=== PATIENT | female | born 1980 | race Caucasian/White ===

== ENCOUNTER → 2018-07-09 | Outpatient (CLI) | payer BC ==
[~2018-07-09] MED LIST: PRENATAL VITAMI1 TA5 PO
== END ==
LOC: COL.RAD 10:17
DX: M25.561 Pain in right knee (principal)

== ENCOUNTER → 2020-01-17 | Outpatient (CLI) | payer BC | LOC: MC.RAD 13:30 | DX: Z12.31 Encounter for screening mammogram for malignant neoplasm of breast (principal); N63.10 Unspecified lump in the right breast, unspecified quadrant ==

== ENCOUNTER → 2020-01-28 | Outpatient (CLI) | payer BC | LOC: MC.RAD 08:14 | DX: N63.12 Unspecified lump in the right breast, upper inner quadrant (principal) ==

== ENCOUNTER → 2020-08-13 | Outpatient (CLI) | payer BC | LOC: MC.RAD 09:15 | DX: N63.10 Unspecified lump in the right breast, unspecified quadrant (principal) ==

== ENCOUNTER → 2021-10-28 | Outpatient (CLI) | payer BC | LOC: MC.RAD 09:30 | DX: Z12.31 Encounter for screening mammogram for malignant neoplasm of breast (principal) ==

== ENCOUNTER 2021-12-12 10:01 | Emergency (ER) | payer BC ==
[~2021-12-12] VITALS: Ht 160 cm; Wt 66.8 kg
[2021-12-12 10:08] VITALS: TEMP 98
[2021-12-12] MEDS ORDERED: ZYRTEC 10MG10 MG PO (10:12)
[2021-12-12] MEDS ORDERED: SYNTHROID0.075 MG/T PO (10:12)
[2021-12-12] MEDS ORDERED: ZOFRAN ODT4 MG PO (11:13)
[2021-12-12 11:15] VITALS: BP 122/65; PULSE 59
== END 2021-12-12 11:24 | disposition home or self-care (01) ==
LOC: COL.ER 10:01
DX: R42 Dizziness and giddiness (principal); H55.00 Unspecified nystagmus; R11.0 Nausea
CPT/HCPCS: J2550

== ENCOUNTER → 2022-11-17 | Outpatient (CLI) | payer BC ==
[~2022-11-17] MED LIST changes: +SYNTHROID0.075 MG/T PO; +ZOFRAN ODT4 MG PO; +ZYRTEC 10MG10 MG PO
== END ==
LOC: MC.RAD 11-15 07:45
DX: Z12.31 Encounter for screening mammogram for malignant neoplasm of breast (principal)